=== PATIENT | male | born 1955 | race Caucasian/White ===

== ENCOUNTER 2017-06-18 18:14 | Emergency (ER) | payer SELFPAY ==
[~2017-06-18] VITALS: Ht 170.2 cm; Wt 82.0 kg
[2017-06-18] MEDS ORDERED: IBUPROFEN 800MG TABLET PO ONE (22:00)
[2017-06-18 22:19] VITALS: BP 155/74
== END 2017-06-18 23:17 | disposition home or self-care (01) ==
LOC: ER 18:24
DX: S93.402A Sprain of unspecified ligament of left ankle, initial encounter (principal); F17.200 Nicotine dependence, unspecified, uncomplicated; W01.0XXA Fall on same level from slipping, tripping and stumbling without subsequent striking against object, initial encounter; Y93.89 Activity, other specified; Y92.018 Other place in single-family (private) house as the place of occurrence of the external cause
CPT/HCPCS: 73610; 73630; 99284